=== PATIENT | female | born 1975 ===

== ENCOUNTER 2020-09-22 11:34 | Outpatient (CLI) | payer OTHER | END 2020-09-22 11:39 | disposition home or self-care (01) | LOC: RAD 11:34 | PROVIDERS: ATTEND General Practice | DX: M25.551 Pain in right hip (principal) ==

== ENCOUNTER 2020-10-03 11:43 | Emergency (ER) | payer OTHER ==
[~2020-10-03] VITALS: Ht 167.6 cm; Wt 69.4 kg
== END 2020-10-03 16:06 | disposition home or self-care (01) ==
LOC: ER 11:43
DX: M79.18 Myalgia, other site (principal); Z03.818 Encounter for observation for suspected exposure to other biological agents ruled out